=== PATIENT | male | born 1990 | race Native Hawaiian/Other Pacific Islander ===

== ENCOUNTER 2016-12-07 22:45 | Emergency (ER) | payer SELFPAY ==
[2016-12-07 23:23] VITALS: BP 104/62; PULSE 78; RESP 20; TEMP 99.1; O2SAT 100
--- NOTE | 2016-12-07 23:54 | C.PDOC ---
History Of Present Illness 26 yo male come in for evaluation of painful mass over buttock gradually developed for past few days. Pt also reports, itchy rash over lower abdominal wall. Otherwise, pt denies fever, chills, throat pain or tightness, SOB, dyspnea , abd. pain, N/V, denies any other active complaints. Ambulate to Ed for evaluation, not in any apparent distress. Time Seen by Provider: 12/07/16 23:17 Chief Complaint (Nursing): Abnormal Skin Integrity History Per: Patient Past Medical History Reviewed: Historical Data, Nursing Documentation, Vital Signs Vital Signs: Last Vital Signs Temp 99.1 F 12/07/16 23:20 Pulse 78 12/07/16 23:20 Resp 20 12/07/16 23:20 BP 104/62 12/07/16 23:20 Pulse Ox 100 12/08/16 00:20 - Medical History PMH: No Chronic Diseases Surgical History: No Surg Hx Family History: States: No Known Family Hx - Social History Hx Alcohol Use: No Hx Substance Use: No Review Of Systems Except As Marked, All Systems Reviewed And Found Negative. Constitutional: Negative for: Fever, Chills ENT: Negative for: Mouth Swelling, Throat Pain, Throat Swelling Cardiovascular: Negative for: Chest Pain Respiratory: Negative for: Cough Gastrointestinal: Negative for: Nausea, Vomiting, Abdominal Pain, Diarrhea Genitourinary: Negative for: Dysuria, Frequency, Incontinence Musculoskeletal: Negative for: Neck Pain, Back Pain Skin: Positive for: Rash, Lesions Neurological: Negative for: Weakness, Numbness, Altered Mental Status, Headache , Dizziness Physical Exam - Physical Exam Appears: Well, Non-toxic, No Acute Distress Skin: Normal Color, Warm, Other ((+)tender mass over Right gluteus 2cm diameter , (+) erythema, (+) flactulance. Raised erythematous scaly oval patch with sharply demarated edges over waist area.) Gastrointestinal/Abdominal: Soft, No Tenderness Back: No Vertebral Tenderness Extremity: No Tenderness, No Pedal Edema, No Deformity Neurological/Psych: Oriented x3, Normal Speech ED Course And Treatment O2 Sat by Pulse Oximetry: 100 Progress Note: On re-evaluation, pt is afebrile, hemodynamicaly stable. NOn- toxic. Ambulatory in ED with stable gait. neck: Supple. Abd: benign. Skin: abscess s/p I&D, noted tinea corporis over lower abdominal wall. No cellulitis. Pt advised on wound care. Ref. to F/u with PMD in 2-3 days for re-eavl. return to ED if any worsning or new changes. - Incision & Drainage Of Abscess Anesthesia: Lidocaine 2% Prep Used: Betadine Procedure: Incised W/Scalpel Blade#:, Drained Pus, Irrigated Cavity W/Saline, Probed To Break Up Loculations, Packed W/Gauze Disposition Counseled Patient/Family Regarding: Diagnosis, Need For Followup, Rx Given - Disposition Referrals: [facility] [Outside] Disposition: HOME/ ROUTINE Disposition Time: 23:54 Condition: STABLE Additional Instructions: Keep wound clean, dry Take medication as prescribed return to ED in 2 days for wound check. return to ED at any time if any worsening or new changes. Prescriptions: Clotrimazole 1% Cream [Lotrimin 1%] 1 gm TP DAILY #1 tube Doxycycline Hyclate [Doryx] 100 mg PO BID #14 cap Instructions: Tinea Corporis (ED), Abscess Incision and Drainage (ED), Abscess (ED) Forms: [employer] (Sinhala) - Clinical Impression Clinical Impression: Abscess, Tinea corporis
== END 2016-12-08 00:25 | disposition home or self-care (01) ==
LOC: C.ER 22:45
DX: L02.31 Cutaneous abscess of buttock (principal); B35.4 Tinea corporis